=== PATIENT | male | born 1955 | race African-American/Black ===

== ENCOUNTER 2020-06-05 14:04 | Emergency (ER) | payer MEDICAID ==
[~2020-06-05] VITALS: Ht 177.8 cm; Wt 70.0 kg
[2020-06-05 16:07] LABS: CLARITY URINE CLEAR (CLEAR); COLOR URINE YELLOW (YELLOW); KETONES URINE NEGATIVE (NEGATIVE); LEUKOCYTE ESTERASE URINE 3+ (NEGATIVE); NITRITE URINE NEGATIVE (NEGATIVE); OCCULT BLOOD URINE 2+ (NEGATIVE); PH URINE 7.5 (4.5-8.0); PROTEIN URINE NEGATIVE (NEGATIVE); SPECIFIC GRAVITY URINE 1.011 (1.005-1.030)
[2020-06-05] MEDS ORDERED: SODIUM CHLORIDE 0.9% 1,000 ML IV ONE (16:39)
[2020-06-05 17:01] LABS: BASOPHILS % 0.6 % (0.0-2.0); EOSINOPHILS % 2.7 % (0.0-5.0); HEMOGLOBIN. 15.7 g/dL (14.0-18.0); MEAN CORPUSCULAR HEMOGLOBIN 30.7 pg (28.0-32.0); MEAN CORPUSCULAR VOLUME 92.1 fL (80.0-94.0); MEAN PLATELET VOLUME 8.3 fl (7.4-10.4); MONOCYTES % 9.7 % (2.0-8.0); PLATELET 181 x1000/uL (130-400); RED BLOOD CELL COUNT 5.11 mill/uL (4.7-6.1); RED CELL DISTRIBUTION WIDTH 13.6 % (11.6-14.6)
[2020-06-05 17:02] LABS: CHLORIDE 109 mEq/L (98-107)
[2020-06-05 17:13] LABS: *AMPHETAMINES SCREEN URINE NEGATIVE (NEGATIVE); *BARBITURATES SCREEN URINE NEGATIVE (NEGATIVE); *BENZODIAZEPINES SCREEN URINE NEGATIVE (NEGATIVE); *COCAINE SCREEN URINE PRESUMTIVE POSITIVE (NEGATIVE); METHADONE URINE SCREEN NEGATIVE (NEGATIVE)
[2020-06-05 17:14] LABS: CANNABINOID URINE SCREEN PRESUMTIVE POSITIVE (NEGATIVE); OPIATES URINE SCREEN NEGATIVE (NEGATIVE); PHENCYCLIDINE URINE SCREEN PRESUMTIVE POSITIVE (NEGATIVE)
[2020-06-05 20:10] LABS: INR 1.1; PROTHROMBIN TIME 11.4 sec (9.6-11.0)
[2020-06-05] MEDS ORDERED: CEFTRIAXONE 1 G PREMIX 50 ML IV ONE (22:15)
[2020-06-06 06:03] VITALS: BP 138/92
== END 2020-06-06 07:00 | disposition home or self-care (01) ==
LOC: ER 14:08
DX: T40.991A Poisoning by other psychodysleptics [hallucinogens], accidental (unintentional), initial encounter (principal); T40.5X1A Poisoning by cocaine, accidental (unintentional), initial encounter; N30.00 Acute cystitis without hematuria; F10.10 Alcohol abuse, uncomplicated; Y90.0 Blood alcohol level of less than 20 mg/100 ml; Y92.488 Other paved roadways as the place of occurrence of the external cause
CPT/HCPCS: 36415; 70450; 71045; 80053; 80305; 80320; 81003; 83605; 83690; 83880; 84484; 85025; 85610; 93005; 96361; 96365; 99285; J0696; J7030; G0480